=== PATIENT | female | born 1975 | race Caucasian/White ===

== ENCOUNTER → 2017-10-26 12:49 | Outpatient (CLI) | payer OTHER, SELFPAY ==
--- NOTE | 2017-10-26 12:54 | BI_ITS ---
MAMMOGRAPHY - BILATERAL SCREENING REASON FOR EXAM: Female, 42 years old. Routine annual screening examination. PERTINENT HISTORY: Grandmother with breast cancer. TECHNIQUE: Digital bilateral breast dutch (3D mammographic acquisition) in the CC and MLO projections. 2-D mediolateral oblique (MLO) and craniocaudad (CC) views of both breasts were obtained. CAD: Full Field Digital Mammography with Computer Added Detection was performed. COMPARISON: Comparison is made with prior study dated October 13, 2016 and October 10, 2015. FINDINGS: Breast Composition: There are scattered areas of fibroglandular density. There are no dominant masses or suspicious calcifications. No other significant abnormalities are identified. There has been no significant change since the prior study. BI/SCREENING MAMM (CAD), BILAT IMPRESSION: Stable bilateral screening mammogram. Yearly follow-up mammogram recommended. (A) ASSESSMENT CATEGORY: BIRADS Category 1: Negative. A letter regarding these results will be sent to the patient by the facility within 30 days. Approximately 10% of breast cancers are not detected by mammography. A normal mammogram should not delay biopsy of a clinically suspicious abnormality. [id number] Electronically Signed: Maurisio De Leon MD at 14:58 EDT Tel [phone], Service support ,
== END ==
PROVIDERS: Family Provider Family Medicine; PCP Family Medicine; Visit Provider Obstetrics & Gynecology
DX: Z12.31 Encounter for screening mammogram for malignant neoplasm of breast (principal)
CPT/HCPCS: 77063; 77067

== ENCOUNTER → 2018-10-27 08:30 | Outpatient (CLI) | payer OTHER, SELFPAY ==
--- NOTE | 2018-10-27 08:33 | BI_ITS ---
MAMMOGRAPHY - BILATERAL SCREENING 3-D TOMOSYNTHESIS REASON FOR EXAM: Female, 43 years old. Bilateral Screening 3-D tomosynthesis PERTINENT HISTORY: History of breast cancer in maternal grandmother in her eighth decade. On control pills for 17 years.. TECHNIQUE: 2-D mammograms and 3-D Tomosynthesis of the breast (s) were performed. CAD was performed. COMPARISON: October 26, 2017, October 13, 2016 FINDINGS: The breast composition is almost entirely fat. Scattered benign calcifications are seen. No dense spiculated masses or suspicious microcalcifications are identified. No architectural distortion is identified. There is no skin thickening or retraction. There has been no significant change since the prior study. BI/SCREEN MAMM (CAD) W/ALLI BILAT IMPRESSION: No mammographic signs of malignancy. Routine yearly mammograms recommended. ASSESSMENT CATEGORY: BIRADS Category 2: Benign. A letter regarding these results will be sent to the patient by the facility within 30 days. FOLLOW UP RECOMMENDATION: Yearly follow up mammogram recommended. (A) Approximately 10% of breast cancers are not detected by mammography. A normal mammogram should not delay biopsy of a clinically suspicious abnormality. Electronically Signed: Lopez Cruz MD at 11:06 EDT , Service support ,
== END ==
PROVIDERS: Family Provider Family Medicine; PCP Family Medicine; Referring Provider Obstetrics & Gynecology; Visit Provider Obstetrics & Gynecology
DX: Z12.31 Encounter for screening mammogram for malignant neoplasm of breast (principal)
CPT/HCPCS: 77063; 77067

== ENCOUNTER → 2019-12-09 07:22 | Outpatient (CLI) | payer OTHER, SELFPAY ==
--- NOTE | 2019-12-09 07:34 | BI_ITS ---
MAMMOGRAPHY - BILATERAL SCREENING REASON FOR EXAM: Female, 44 years old. Routine annual screening examination. PERTINENT HISTORY: Grandmother with breast cancer. TECHNIQUE: Digital bilateral breast alli (3D mammographic acquisition) in the CC and MLO projections. 2-D mediolateral oblique (MLO) and craniocaudad (CC) views of both breasts were obtained. CAD: Full Field Digital Mammography with Computer Added Detection was performed. COMPARISON: Comparison is made with prior examination dated 10/27/2018 and 10/26/2017. FINDINGS: Breast Composition: The breasts are almost entirely fatty. There are no dominant masses or suspicious calcifications. No other significant abnormalities are identified. There has been no significant change since the prior study. BI/SCREEN MAMM (CAD) W/ALLI BILAT IMPRESSION: Stable bilateral screening mammogram. Yearly follow-up mammogram recommended. (A) ASSESSMENT CATEGORY: BIRADS Category 1: Negative. A letter regarding these results will be sent to the patient by the facility within 30 days. Approximately 10% of breast cancers are not detected by mammography. A normal mammogram should not delay biopsy of a clinically suspicious abnormality. [id number] Electronically Signed: Maurisio De Leon, at 10:31 EDT , Service support ,
== END ==
PROVIDERS: PCP Family Medicine; Referring Provider Obstetrics & Gynecology; Visit Provider Obstetrics & Gynecology
DX: Z12.31 Encounter for screening mammogram for malignant neoplasm of breast (principal); Z80.3 Family history of malignant neoplasm of breast
CPT/HCPCS: 77063; 77067

== ENCOUNTER → 2021-01-25 11:21 | Outpatient (CLI) | payer OTHER, SELFPAY ==
--- NOTE | 2021-01-25 11:28 | BI_ITS ---
MAMMOGRAPHY - BILATERAL SCREENING REASON FOR EXAM: Female, 45 years old. Routine annual screening examination. PERTINENT HISTORY: Grandmother with breast cancer. TECHNIQUE: Digital bilateral breast alli (3D mammographic acquisition) in the CC and MLO projections. 2-D mediolateral oblique (MLO) and craniocaudad (CC) views of both breasts were obtained. CAD: Full Field Digital Mammography with Computer Added Detection was performed. COMPARISON: Comparison is made with prior examination 12/09/2019 and 10/27/2018. FINDINGS: Breast Composition: The breasts are almost entirely fatty. There are no dominant masses or suspicious calcifications. Stable benign-appearing bilateral axillary lymph nodes. No other significant abnormalities are identified. There has been no significant change since the prior study. BI/SCRN MAMM (CAD)W/ALLI BILAT IMPRESSION: Stable bilateral screening mammogram. Yearly follow-up mammogram recommended. (A) ASSESSMENT CATEGORY: BIRADS Category 2: Benign. A letter regarding these results will be sent to the patient by the facility within 30 days. Approximately 10% of breast cancers are not detected by mammography. A normal mammogram should not delay biopsy of a clinically suspicious abnormality. [id number] Electronically Signed: Maurisio De Leon MD at 12:30 EDT , Service support ,
== END ==
PROVIDERS: PCP Family Medicine; Referring Provider Obstetrics & Gynecology; Visit Provider Obstetrics & Gynecology
DX: Z12.31 Encounter for screening mammogram for malignant neoplasm of breast (principal); Z80.3 Family history of malignant neoplasm of breast
CPT/HCPCS: 77063; 77067

== ENCOUNTER → 2021-09-12 | Outpatient (CLI) | payer OTHER, SELFPAY ==
[2021-09-12 15:30] LABS: Hematocrit 31.4 % (37-47); Hemoglobin 8.6 g/dL (12.0-15.0)
== END | disposition home or self-care (01) ==
LOC: WOBLAB 15:14
PROVIDERS: PCP Family Medicine; Visit Provider Obstetrics & Gynecology
DX: N93.9 Abnormal uterine and vaginal bleeding, unspecified (principal)
CPT/HCPCS: 36415; 85014; 85018

== ENCOUNTER 2021-11-11 06:32 | Day surgery (SDC) | payer OTHER, SELFPAY ==
[2021-11-07 17:57] LABS: Hematocrit 40.1 % (37-47); Mean Corp Hgb Conc 32.4 g/dL (32-36); Mean Corpuscular Hgb 26.3 pg (27.0-32.0); Mean Platelet Vol. 8.4 fl (6.2-12.0); POSITIVE MORPHOLOGY YES; Platelet Count 435 K/mm3 (150-450); RBC Distribution Width CV 23.4 % (11.6-14.6); Red Blood Count 4.95 M/mm3 (4.2-5.4)
[2021-11-07 18:03] LABS: ERROR RESULT FLAG NO
[2021-11-11] VITALS (7 sets, daily range): BP systolic 125–150; BP diastolic 72–86; PULSE 55–74; RESP 16; TEMP 36.6–37.3; O2SAT 97–100; BMI 34.4
[2021-11-11 07:05] LABS: Internal QC Validated? YES +Cl - CLEAR BKGD; Pregnancy, Urine Negative Negative
[2021-11-11] MEDS: Lactated Ringers 1,000 ML 30 ML IV (07:18)
--- NOTE | 2021-11-11 07:22 | HP.PCM.OB_ITS ---
History and Physical Date of Admission: 11/11/21 Surgical History and Physical Date: 11/11/2021 Name: SAROJ BRAN Age: 46 Date of : 1975 Saroj Bran, a 46 year old female 2 0 0 0 2 2 0 0 0 2 2 0 0 0 2, presents for Hysteroscopy dilation and curettage endometrial ablation via Ammy on 11/11/21 -- Saroj is having a hysteroscopy D&C ammy ablation. Consents are signed. MEDICATIONS HISTORY: ALLERGIES: NKA and No Known Drug Allergies Illnesses - no serious past illnesses Accidents - no injuries of consequence Hospitalizations - Childbirth and see surgery Review of Systems: GENERAL - Denies fever, or chills SKIN - Denies skin changes EYES - Denies visual changes EARS - Denies difficulty hearing NOSE - Denies nasal congestion or bleeding MOUTH - Denies sore throat or difficulty swallowing NECK - Denies pain or swelling RESPIRATORY - Denies shortness of breath or wheezing CARDIOVASCULAR - Denies palpitations or chest pain GASTROINTESTINAL - Denies nausea, vomiting, diarrhea, constipation GENITOURINARY - Denies dysuria, frequency of urination, incontinence of urine MUSCULOSKELETAL - Denies joint or muscle pain NEUROLOGICAL - Denies localized numbness or weakness PSYCHIATRIC - Denies depression or anxiety ENDOCRINE - Denies heat or cold intolerance, weight loss or gain HEMATO-IMMUNOLOGIC - Denies excessive bleeding with cuts SOCIAL HISTORY: Alcohol Use - denies drinking Smoking - denies smoking Diet - balanced Lifestyle - moderate stress lifestyle Exercise - walking Seat Belt Use - always 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 Father: Parkinson's Disease. Brother: DM II. Maternal Grandmother: Breast cancer. MENSTRUAL HISTORY: LMP Known?- DefiniteAmount/Duration - 7 to 10 days, Regularity - heavy, Frequency - monthly days, LMP - 10/28/21, Age Onset Menarche - 12 PAST PREGNANCIES: Total Pregnancies - 2; Full Term Pregnancies - 2; Premature - 0; Abortions, Induced - 0; Abortions, Spontaneous - 0; Ectopics - 0; Multiple Births - 0; Living Children - 2 SURGICAL HISTORY: 1. ' WISDOM TEETH ; - 2. 11/12/2008 ; Myla Julio M.D. - Failure to progress 3. 04/24/2011 ; Myla Julio M.D. - PHYSICAL EXAM Weight- 187.51635 lbs Height- 62 inch BMI:[id number] CONSTITUTIONAL - NAD, well nourished, and well developed SKIN - No rash, lesions, or ulcers HEENT - Normocephalic, PERRLA, EOMI NECK - No nodes, no nuchal rigidity and thyroid normal size and texture ABDOMEN - Without hepatosplenomegaly, distention, masses, rebound, or guarding; normal bowel sounds; no hernias EXTREMITIES - No edema or calf tenderness NEUROLOGICAL - Cranial nerves II-XII grossly intact PSYCHIATRIC - A and O to time, place, person, mood and affect External Genital Vagina - non-tender without lesions Urethra/Urethral Meatus - non-tender Bladder - non-tender Vagina - vaginal willson are pink and moist without loss of rugae and no evidence of atrophy Cervix - without cervical motion tenderness and has normal size and features without evident lesions Uterus - 5-6 cm in size, mobile and nontender Adnexa - clear without masses or tenderness ASSESSMENT/PLAN: 1. Abnormal Uterine And Vaginal Bleeding, Unspecified Patient with monthly cycles but has 7 days of heavy menses Ultrasound with Uterus 10cm. 4 cm submucosal fibroid, 3cm submucosal fibroid 2 cm subserosal fibroid. 2. Encounter For Other Preprocedural Examination Patient scheduled for hysteroscopy, dilation and curettage, endometrial ablation via Ammy for abnormal uterine bleeding Educated patient on risk benefits alternatives. Patient states understanding and wished to proceed. All questions were answered and consent was signed Discussed postoperative recovery Follow-up 2 weeks postoperatively
--- NOTE | 2021-11-11 08:20 | EMB_PTH ---
PATIENT: CHRIS BRAN LOC: [facility] [place] U#:[id number] AGE/SX: 46/F ROOM: RE11/11/[address]: Dr. Justo Mao MD : 1975 BED: DIS: 11/11/2021 SPEC #: [id number] RECD: 11/11/21 10:05 STATUS: MADHU CARSON #: [id number] LUZ: 11/11/21 08:[address]: Justo Mao DEPT: SURGICAL PATHOLOGY RECD BY: Santa Meyers ENTERED: 11/11/21 13:02 SP TYPE: ENDOM BX/C TRE DR: Dr. Rafy Feliz MD Tissues: Endometrium, NOS Procedures: Surgery Specimen Level IV HEADER OPERATION: Hysteroscopy, D & C Raquel PRE-OP DIAGNOSIS: Abnormal uterine and vaginal bleeding TISSUE SUBMITTED: Endometrial curettings MICROSCOPIC DIAGNOSIS Endometrial curettings: Fragments of benign endometrial tissue with extensive exogenous hormone effects. Fragments of benign endocervical mucosa with chronic inflammation. SJ:nazanin 11/12/2021 MICROSCOPIC DESCRIPTION Slides are reviewed. GROSS DESCRIPTION Received in fixative is one container labeled with the patient's name and designated endometrial curettings. The specimen consists of multiple fragments of hemorrhagic soft tissue that in aggregate measure 2.5 x 2 x 0.1 cm. The specimen is totally submitted in one cassette. / RIO:nazanin 11/11/2021 TC:5 CPT: 99968
--- NOTE | 2021-11-11 09:07 | DCINST_ITS ---
Discharge Instructions Diet Discharge Diet: No restrictions Activity Discharge Activity: Return to Normal Activity, May Drive and May Shower May resume sexual activity in: 4-6 weeks Weight Bearing Status: Weight bearing as tolerated Dressing / Incision Call your doctor if your incision/area has: Continuous Slow Oozing and Foul Smelling Discharge Call your doctor if you observe: Fever of 101 or Higher, Shortness of breath and Chest pain Follow Up Care Please Follow Up With: Justo Mao MD When: Follow up 2 weeks Test Results: Test results from this visit will be discussed in further detail at your follow- up appointment, if applicable. Discharge Plan Admission Attending Provider: Justo Mao Primary Care Provider: Rafy Feliz Discharge Orders/Prescriptions Prescriptions: No Action famotidine [Pepcid] 20 mg Tablet 20 mg PO PRN PRN (Reason: GERD) ferrous sulfate 325 mg (65 mg iron) Tablet 325 mg PO BID norethindrone acetate 5 mg Tablet 10 mg PO BID Label Comments: COMPLETED 11/06/21 Referrals / Follow Up: Rafy Feliz MD [Primary Care Provider] - Disposition Disposition (needs filled in before D/C Order can be placed): Home, Self Care
--- NOTE | 2021-11-11 09:08 | OP.PCM_ITS ---
Report of Operation Date of Procedure: 11/11/21 Pre-Operative Diagnosis: Abnormal uterine bleeding Post-Operative Diagnosis: Abnormal uterine bleeding Surgery/Procedure Performed:: Hysteroscopy, dilation curettage, endometrial ablation via Raquel Description of Surgical Findings:: Surgeon: Justo Mao MD Anesthesia: MAC EBL: 30 cc Urine output: Not measured IV fluids: 800 cc Complications: None Specimen: Endometrial curettings Findings: Uterine cavity with posterior left lateral submucosal fibroid, 10% of fibroid intracavitary. Otherwise no pathology noted. Cavity length 11 cm, cervical length 3 cm, Raquel ablation device set to maximum cavity length of 6.5 cm. Post procedure hysteroscopy with no new pathology and hemostatic. Consent: Patient with abnormal uterine bleeding elects for hysteroscopy, dilation and curettage, endometrial ablation via Raquel device. Patient understands the risk of the procedure include but are not limited to visceral or vascular injury, prolonged hospitalization, blood loss and need for transfusion, reoperation. Patient states understanding and wishes to proceed. All questions were answered and consent was signed. Procedure: Patient was brought back to the OR where MAC anesthesia was found to be adequate. Patient was prepared and draped in a dorsolithotomy position with yellowfin stirrups. A weighted speculum was placed in the posterior aspect of the vagina and cervical dilators were used to dilate the cervix. Hysteroscope was inserted and above findings were noted. Sharp endometrial curettings were obtained and sent to pathology. Raquel device inserted under direct v isualization with above settings. Safety test passed x2. 2-minute endometrial ablation performed. Raquel device removed under direct visualization. Hysteroscope inserted and above findings noted. Good hemostasis was noted. All counts were correct x2. Patient tolerated the procedure well and was brought to recovery in a stable condition.
== END 2021-11-11 10:38 | disposition home or self-care (01) ==
LOC: SDC 06:32 → AC 06:34
PROVIDERS: Anesthesiology; PCP Family Medicine; Referring Provider Obstetrics & Gynecology; Visit Provider Obstetrics & Gynecology
PROC: 0U5B8ZZ Destruction of Endometrium, Via Natural or Artificial Opening Endoscopic (ICD-10-PCS; CPT 58558; principal; 2021-11-11 08:05)
DX: N93.9 Abnormal uterine and vaginal bleeding, unspecified (principal); D64.9 Anemia, unspecified; K21.9 Gastro-esophageal reflux disease without esophagitis
CPT/HCPCS: 58563; 00952; 36415; 81025; 83735; 85027; 86850; 86900; 86901; 88305; J7120; J2405

== ENCOUNTER → 2022-01-31 | Outpatient (CLI) | payer OTHER, SELFPAY ==
--- NOTE | 2022-01-31 09:03 | BI_ITS ---
MAMMOGRAPHY - BILATERAL SCREENING REASON FOR EXAM: Female, 46 years old. Routine annual screening examination. PERTINENT HISTORY: Grandmother with breast cancer. TECHNIQUE: Digital bilateral breast alli (3D mammographic acquisition) in the CC and MLO projections. 2-D mediolateral oblique (MLO) and craniocaudad (CC) views of both breasts were obtained. CAD: Full Field Digital Mammography with Computer Added Detection was performed. COMPARISON: Comparison is made with prior examination dated 01/25/2021 and 12/09/2019. FINDINGS: Breast Composition: The breasts are almost entirely fatty. There are no dominant masses or suspicious calcifications. Stable small benign appearing lateral axillary lymph nodes. No other significant abnormalities are identified. There has been no significant change since the prior study. BI/SCRN MAMM (CAD)W/ALLI BILAT IMPRESSION: Stable bilateral screening mammogram. Yearly follow-up mammogram recommended. (A) ASSESSMENT CATEGORY: BIRADS Category 2: Benign. A letter regarding these results will be sent to the patient by the facility within 30 days. Approximately 10% of breast cancers are not detected by mammography. A normal mammogram should not delay biopsy of a clinically suspicious abnormality. [id number] Electronically Signed: Maurisio De Leon MD at 10:04 EDT ,
== END | disposition home or self-care (01) ==
LOC: OPBI 09:02
PROVIDERS: PCP Family Medicine; Visit Provider Obstetrics & Gynecology
DX: Z12.31 Encounter for screening mammogram for malignant neoplasm of breast (principal); Z80.3 Family history of malignant neoplasm of breast
CPT/HCPCS: 77063; 77067

== ENCOUNTER 2022-08-18 09:03 | Day surgery (SDC) | payer OTHER, SELFPAY ==
[2022-08-14 10:08] LABS: Hematocrit 37.8 % (37-47); Mean Corp Hgb Conc 31.7 g/dL (32-36); Mean Corpuscular Hgb 29.3 pg (27.0-32.0); Mean Corpuscular Volume 92.2 fL (81-99); Mean Platelet Vol. 8.1 fl (6.2-12.0); Platelet Count 523 K/mm3 (150-450); RBC Distribution Width CV 14.4 % (11.6-14.6); RBC Distribution Width SD 47.8 fl (35.1-43.9); White Blood Count 6.6 K/mm3 (4.4-11.0)
[2022-08-14 10:28] LABS: Magnesium 2.1 mg/dL (1.6-2.6)
[2022-08-18] VITALS (8 sets, daily range): BP systolic 126–158; BP diastolic 78–97; PULSE 54–73; RESP 11–19; TEMP 36.3–36.4; O2SAT 12–100; BMI 35.6
--- NOTE | 2022-08-18 09:26 | PCM.HP.BLA ---
History and Physical Date of Admission: 08/18/22 Chief complaint: Abnormal uterine bleeding History present illness: 47-year-old arrives for robotic assisted total laparoscopic hysterectomy and bilateral salpingectomy and cystoscopy for abnormal uterine bleeding and leiomyomas. No medical changes since last seen. All questions answered and consent signed. Obstetric history: with a history of 2 vaginal deliveries Past medical history: None Medications: Iron, biotin, Katya Past surgical history: Uterine ablation, wisdom teeth extraction Allergies: No known drug allergies Social history: Denies smoking, alcohol use, drug use Family history: Denies history DVT or PE Review of systems: Besides above pertinent positives a full review of systems was performed and found to be negative Physical exam: Vitals: Pending General: Normal-appearing no acute distress HEENT: Normocephalic/atraumatic no cervical lymphadenopathy Cardiac/respiratory: No use of accessory muscles, nonlabored breathing Abdomen: Soft, nontender, nondistended Extremities: No peripheral edema normal peripheral pulses Psych: Normal affect normal demeanor nonpressured speech Assessment and plan: 47-year-old arrives for robotic assisted total laparoscopic hysterectomy bilateral salpingectomy and cystoscopy for abnormal uterine bleeding and leiomyomas. Patient understands risk of the procedure include but are not limited to visceral or vascular injury, prolonged hospitalization, blood loss need for transfusion, reoperation. Patient state understanding wish to proceed. All questions were answered and consent was signed.
[2022-08-18 09:48] LABS: Internal QC Validated? YES +Cl - CLEAR BKGD; Pregnancy, Urine Negative Negative
[2022-08-18] MEDS: Acetaminophen 500 MG Tablet 1000 MG PO (09:55)
[2022-08-18] MEDS: Gabapentin 600 MG Tablet PO (09:55)
[2022-08-18] MEDS: Lactated Ringers 1,000 ML 40 ML IV (09:55)
[2022-08-18 10:25] LABS: Bedside Glucose 84 mg/dL (74-106)
[2022-08-18] MEDS: Cefazolin 2 GM in 0.9% Normal Saline 100 ML IV (10:43)
--- NOTE | 2022-08-18 11:10 | HYST_PTH ---
PATIENT: CHRIS BRAN LOC: [facility] [place] U#:[id number] AGE/SX: 47/F ROOM: RE08/18/[address]: Dr. Justo Mao MD : 1975 BED: DIS: 08/18/2022 SPEC #: [id number] RECD: 08/18/22 15:57 STATUS: MADHU RENikki #: [id number] LUZ: 08/18/22 11:[address]: Justo Mao DEPT: SURGICAL PATHOLOGY RECD BY: Santa Meyers ENTERED: 08/19/22 09:40 SP TYPE: HYSTERECT OTHR DR: Dr. Rafy Feliz MD Tissues: Uterus, NOS Procedures: Surgery Specimen Level V HEADER OPERATION: ERAS, lap robotic hysterectomy, bilateral salpingectomy, cysto PRE-OP DIAGNOSIS: Abnormal uterine bleeding TISSUE SUBMITTED: Uterus, cervix, bilateral fallopian tubes, fibroids MICROSCOPIC DIAGNOSIS Uterus, cervix, bilateral fallopian tubes and fibroids, hysterectomy and bilateral salpingectomy: Cervix ? chronic inflammation. Endometrium - See comment. Myometrium ? leiomyomas (largest measuring 4.5 cm in greatest dimension. Bilateral fallopian tubes - no pathologic diagnosis. Bilateral paratubal cysts. SJ:rg 08/20/2022 COMMENT Only a focal minimal area with benign endometrial tissue is noted in the sections examined. MICROSCOPIC DESCRIPTION Slides are reviewed. GROSS DESCRIPTION Received in fixative is one container labeled with the patient's name and designated uterus. The specimen consists of a morcellated uterus received in seven parts ranging in size from 1.7 to 11.0 cm and in aggregate weighing 152 gm. The detached cervical portion measures 3.5 cm in length. No mass lesions are identified. No distinct endometrial cavity is identified. The myometrium contains multiple spherical rubbery nodules resembling leiomyomas ranging in size from 0.7 to 4.5 cm. Sections of these nodules reveal a whorled cut appearance without areas of cyst formation or necrosis. Present free in the container are two fallopian tubes with fimbrial ends. The fallopian tubes measure 5.0 cm in average length and 0.6 cm in average diameter. Both fallopian tubes near the fimbrial end contains smooth, glistening cysts containing clear fluid. The cysts range in size from 1.0 to 1.5 cm in greatest dimension. Safety Companion sections are submitted in ten cassettes as follows: 1 - cervix and endocervix, 2-5 - presumed endometrium, adjacent myometrium and smaller myometrial masses, 6 - largest myometrial mass, 7 - second largest myometrial mass, 8 - third largest myometrial mass, 9 - one fallopian tube and paratubal cyst, 10 - the other fallopian tube and paratubal cyst. / AM:nazanin 08/19/2022 TC:5 CPT: 63905
--- NOTE | 2022-08-18 12:09 | DCINST_ITS ---
Discharge Instructions Diet Discharge Diet: No restrictions Activity Discharge Activity: Return to Normal Activity, May Drive, May Shower and - (No tub baths for 2 weeks) May resume sexual activity in: 6-8 weeks Lifting Restrictions: No lifting over 25 pounds for 2 to 3 weeks Dressing / Incision Call your doctor if your incision/area has: Continuous Slow Oozing and Foul Smelling Discharge Call your doctor if you observe: Fever of 101 or Higher, Shortness of breath and Chest pain Follow Up Care Please Follow Up With: Justo Mao MD When: 2 weeks postoperatively Test Results: Test results from this visit will be discussed in further detail at your follow- up appointment, if applicable. Discharge Plan Admission Attending Provider: Justo Mao Primary Care Provider: Rafy Feliz Discharge Orders/Prescriptions Prescriptions: New oxycodone 5 mg Tablet 5 mg PO Q6H PRN PRN (Reason: Pain Score 4-10/10) 5 Days Qty: 20 0RF Continued famotidine [Pepcid] 20 mg Tablet 20 mg PO PRN PRN (Reason: GERD) ferrous sulfate 325 mg (65 mg iron) Tablet 325 mg PO BID drospirenone-e.estradiol-lm.FA 3-0.03-0.451 mg (21) (7) Tablet 1 tab PO DAILY biotin 10,000 mcg Tablet,Chewable 10,000 mcg PO DAILY Referrals / Follow Up: Rafy Feliz MD [Primary Care Provider] - Disposition Disposition (needs filled in before D/C Order can be placed): Home, Self Care
--- NOTE | 2022-08-18 12:10 | OP.PCM_ITS ---
Report of Operation Date of Procedure: 08/18/22 Pre-Operative Diagnosis: Abnormal uterine bleeding, leiomyoma Post-Operative Diagnosis: Abnormal uterine bleeding, leiomyoma Surgery/Procedure Performed:: Robotic assisted total laparoscopic hysterectomy bilateral salpingectomy, cystoscopy Description of Surgical Findings:: Surgeon: Justo Mao MD Anesthesia: General EBL: 25 cc Urine output: 700 cc IV fluids: 900 cc Complications: None Specimen: Uterus, tubes, cervix, leiomyomas Findings: Fibroid uterus largest 5 cm at the fundus. Multiple 2 to 3 cm intramural subserosal and submucosal fibroids at all areas of the uterus. Otherwise normal fallopian tubes and ovaries. Post procedure cystoscopy with bilateral ureteral jets noted, and no pathology noted. Consent: Patient with abnormal uterine bleeding and leiomyomas elects for robotic assisted total laparoscopic hysterectomy bilateral salpingectomy and cystoscopy. Patient understands risk of the procedure include but are not limited to visceral or vascular injury, prolonged hospitalization, blood loss need for transfusion, reoperation. Patient state understanding and wished to proceed. All questions were answered and consent was signed. Procedure: Patient was brought back to the OR where general anesthesia was found to be adequate. 2 g of Ancef were given for infection prophylaxis. Patient was prepared and draped in a dorsolithotomy position with yellowfin stirrups. Weighted speculum was placed in the posterior aspect of vagina and cervical dilators were used dilate the cervix. Uterine manipulator was placed. Varies needle was inserted the umbilicus water safety test was passed. Abdomen was insufflated. 8 mm robotic trocar was inserted supraumbilical midline under direct visualization. Laparoscope was inserted and above findings were noted. Bilateral lower quadrant 8 mm robotic trocars were inserted under direct visualization. Left upper quadrant 8 mm air seal was placed under direct visualization. Robot was docked. Organ targeting performed. Bilateral ureters were visualized and noted to be out of the operative field. Using a vessel sealer and monopolar scissors the left round ligament was identified cut and cauterized, anterior and posterior portions of broad ligament were dissected. Bladder flap was developed. Left fallopian tube was identified out to the fimbria and the mesosalpinx was cut and cauterized, fallopian tube was t ransected at the cornua, fallopian tube was removed from the abdomen and sent to pathology. Left utero-ovarian ligament was identified cut and cauterized. Left uterine vessels were skeletonized. Left uterine vessels were cut and cauterized lateralized beyond the level of colpotomy cup. Right round ligament was identified cut and cauterized, anterior and posterior portions of broad ligament were dissected. Bladder flap was fully developed beyond the level of colpotomy cup. Right fallopian tube was identified to the fimbria and the mesosalpinx was cut and cauterized, fallopian tube was transected at the cornua, fallopian tube was removed from abdominal cavity and sent to pathology. Right utero-ovarian ligament was identified cut and cauterized. Right uterine vessels were skeletonized. Right uterine vessels were cut and cauterized, lateralized beyond the level colpotomy cup. Circumferential colpotomy was made. Uterus was removed from the abdominal cavity with the help of using single-tooth tenaculum and ring forceps. Good hemostasis was noted. Abdominal irrigation was performed. Good hemostasis was noted. Colpotomy was closed with a V-Loc suture in a continuous running fashion. Good hemostasis was noted. Abdominal irrigation was performed and good hemostasis was noted. Cystoscopy was performed and above findings were noted, bilateral ureteral jets were noted, no pathology noted. Abdomen was reinspected for hemostasis, good hemostasis was noted. Elena was placed over the surgical site/vaginal cuff. Good hemostasis was noted. Abdomen was desufflated, trocars were removed under direct visualization. Good hemostasis was noted. Trocar sites were closed in a subcutaneous fashion and skin glue was placed over the incisions. Good hemostasis was noted. All counts were correct x2. Patient tolerated the procedure well and was brought to recovery in stable condition. sharepoint trainer: Wicho Armas
[2022-08-18] MEDS: Ketorolac 30 MG/ML Syringe IV (12:40)
== END 2022-08-18 15:04 | disposition home or self-care (01) ==
LOC: SDC 09:05 → AC 09:16
PROVIDERS: Anesthesiology; PCP Family Medicine; Referring Provider Obstetrics & Gynecology; Visit Provider Obstetrics & Gynecology
PROC: 0UT90ZZ Resection of Uterus, Open Approach (ICD-10-PCS; CPT 58571; principal; 2022-08-18 10:50)
DX: D25.9 Leiomyoma of uterus, unspecified (principal); N93.9 Abnormal uterine and vaginal bleeding, unspecified; N83.8 Other noninflammatory disorders of ovary, fallopian tube and broad ligament; G47.33 Obstructive sleep apnea (adult) (pediatric); D64.9 Anemia, unspecified; I25.10 Atherosclerotic heart disease of native coronary artery without angina pectoris; D50.0 Iron deficiency anemia secondary to blood loss (chronic); Z86.718 Personal history of other venous thrombosis and embolism; Z95.5 Presence of coronary angioplasty implant and graft
CPT/HCPCS: 58571; S2900; 00840; 81025; 82962; 83735; 85027; 86850; 86900; 86901; 88307; J7120; J2405; J3475

== ENCOUNTER → 2023-01-23 | Outpatient (CLI) | payer OTHER, SELFPAY ==
--- NOTE | 2023-01-23 12:07 | BI_ITS ---
MAMMOGRAPHY - BILATERAL SCREENING REASON FOR EXAM: Female, 47 years old. Routine annual screening examination. PERTINENT HISTORY: Grandmother with breast cancer. TECHNIQUE: Digital bilateral breast alli (3D mammographic acquisition) in the CC and MLO projections. 2-D mediolateral oblique (MLO) and craniocaudad (CC) views of both breasts were obtained. CAD: Full Field Digital Mammography with Computer Added Detection was performed. COMPARISON: Comparison is made with prior study dated January 31, 2022 and January 25, 2021. FINDINGS: Breast Composition: The breasts are almost entirely fatty. There are no dominant masses or suspicious calcifications. No other significant abnormalities are identified. There has been no significant change since the prior study. BI/SCRN MAMM (CAD)W/ALLI BILAT IMPRESSION: Stable bilateral screening mammogram. Yearly follow-up mammogram recommended. (A) ASSESSMENT CATEGORY: BIRADS Category 1: Negative. A letter regarding these results will be sent to the patient by the facility within 30 days. Approximately 10% of breast cancers are not detected by mammography. A normal mammogram should not delay biopsy of a clinically suspicious abnormality. [id number] Electronically Signed: Maurisio De Leon MD at 13:21 EDT ,
== END | disposition home or self-care (01) ==
PROVIDERS: PCP Family Medicine; Referring Provider Obstetrics & Gynecology; Visit Provider Obstetrics & Gynecology
DX: Z12.31 Encounter for screening mammogram for malignant neoplasm of breast (principal); Z80.3 Family history of malignant neoplasm of breast
CPT/HCPCS: 77063; 77067